=== PATIENT | female | born 1955 | race Caucasian/White ===

== ENCOUNTER 2021-11-21 12:52 | Emergency (ER) | payer MEDICARE ==
[2021-11-21 15:12] LABS: BASOPHIL 0.6 % (0-2); EOSINOPHIL 2.1 % (0-7); HCT 40.6 % (37.0-47.0); HGB 13.2 g/dl (12.5-16.0); LYMPHOCYTE 16.4 % (15-48); MCHC 32.5 g/dL (32.0-36.0); MCV 86.2 fL (78.0-100.0); MONOCYTE 10.2 % (0-12); MPV 9.7 fL (6.0-9.5); NEUTROPHIL 70.4 % (41-80); NRBC 0; PLT 248 K/uL (150-400); RBC 4.71 M/uL (4.20-5.40); RDW 13.3 % (11.5-14.0); WBC 12.6 K/uL (4.0-10.5)
[2021-11-21 15:31] LABS: BUN/CREAT RATIO (CALC) 10.9 RATIO; CREATININE 1.28 mg/dL (0.51-0.95); POTASSIUM 4.3 mmol/L (3.5-5.1)
[2021-11-21 16:05] LABS: CORONAVIRUS 2019 SARS-COV-2 NEGATIVE (NEGATIVE); INFLUENZA A NAA NEGATIVE (NEGATIVE)
[2021-11-21] MEDS ORDERED: PREDNISONE 20MG20 MG PO (18:22)
[2021-11-21] MEDS ORDERED: VIBRAMYCIN100 MG PO (18:22)
[2021-11-21] MEDS ORDERED: VENTOLIN HFA IN18 GM INH (18:23)
== END 2021-11-21 19:30 | disposition home or self-care (01) ==
LOC: FER 12:52
PROVIDERS: Nurse Practitioner Family
DX: J18.9 Pneumonia, unspecified organism (principal); I10 Essential (primary) hypertension; Z87.891 Personal history of nicotine dependence; Z79.899 Other long term (current) drug therapy; Z20.822 Contact with and (suspected) exposure to COVID-19
CPT/HCPCS: 36415; 71046; 71250; 80048; 85025; 85379; 87880; 94640; 94664; J1100; U0002